=== PATIENT | male | born 1970 ===

== ENCOUNTER 2022-06-06 08:43 | Day surgery (SDC) | payer BC ==
[2022-06-06 09:46] LABS: Absolute Lymphocytes (CBC) 1.6 K/uL (0.7-4.9); Hematocrit 38.7 % (39.6-49.0); MCV 82.9 fL (80-100); RBC Red Blood Cell Count 4.67 M/uL (4.33-5.43)
[2022-06-06 10:03] LABS: Potassium 3.7 mmol/L (3.5-5.1)
[2022-06-06] MEDS ORDERED: Ringers Lactate 1,000 ML IV ONE ×2 (10:08→12:39)
[2022-06-06] MEDS ORDERED: ACETAMINOPHEN 500 MG TAB PO ONE ×2 (10:30→10:31)
[2022-06-06] MEDS ORDERED: CELECOXIB 100 MG CAPSULE PO ONE ×2 (10:30→10:31)
[2022-06-06] MEDS ORDERED: CELECOXIB 100 MG CAPSULE ONE (10:31)
[2022-06-06] MEDS ORDERED: ACETAMINOPHEN 500 MG TAB ONE (10:31)
[2022-06-06] MEDS: CEFAZOLIN SODIUM 1 GM/VIAL ONE ×2 (11:05→12:10)
[2022-06-06] MEDS ORDERED: FENTANYL CITR 100 MCG/2 ML ONE (11:41)
[2022-06-06] MEDS ORDERED: MIDAZOLAM HCL 2 MG/2 ML INJ ONE (11:41)
[2022-06-06] MEDS ORDERED: propofoL 200 MG/20 ML VIAL IV ONE (11:41)
[2022-06-06] MEDS ORDERED: LIDOCAINE 2% MPF 5 ML VIAL ONE (11:41)
[2022-06-06] MEDS ORDERED: ROCURONIUM 50 MG/5 ML VIAL IV ONE (11:41)
[2022-06-06] MEDS ORDERED: ONDANSETRON 4 MG/2 ML VIAL ONE (11:43)
[2022-06-06] MEDS ORDERED: GLYCOPYRROLATE 0.2 MG/ML SYR ONE (12:13)
[2022-06-06] MEDS ORDERED: KETOROLAC 30 MG/ML INJ ONE (12:25)
[2022-06-06] MEDS ORDERED: EPHEDRINE SULF 50 MG/ML VIAL ONE (12:32)
--- NOTE | 2022-06-06 12:36 | P.BOP ---
Preoperative diagnosis: tender posterior neck subQ mass 10x6 cm Postoperative diagnosis: same Primary procedure: Excisional biopsy of tender posterior neck subQ mass 10x6 cm Estimated blood loss: <10cc Specimen: mass Findings: see dicta Anesthesia: General Complications: None Transferred to: Recovery Room Condition: Good
[2022-06-06] MEDS ORDERED: Mastisol Adhesive Liq ONE (12:37)
--- NOTE | 2022-06-06 12:56 | RAD REPORT ---
EXAM DESCRIPTION: RAD - Chest Pa And Lat (2 Views) - 06/06/2022 10:55 am CLINICAL HISTORY: PREOP COMPARISON: None TECHNIQUE: Frontal and lateral views of the chest were obtained. FINDINGS: The lungs are clear. No mass or lymphadenopathy at either hilum. Trachea is midline. Hear t size is normal and central vasculature is within normal limits. No pleural effusion or pneumothora x seen. No acute bony finding noted. No aortic abnormality. IMPRESSION: No acute cardiopulmonary process.
[2022-06-06 13:01] VITALS: O2SAT 100
[2022-06-06 14:01] VITALS: BP 126/77; TEMP 97.6
--- NOTE | 2022-06-07 08:39 | EKG ---
Test Date: 2022-06-06 Test Time: 09:54:45 Landscaper: ALTHEA MEASUREMENT RESULTS: Intervals: Rate: 61 SC: 182 QRSD: 90 QT: 406 QTc: 408 [place]: P: 60 SC: 182 QRS: 61 T: 48 INTERPRETIVE STATEMENTS: Normal sinus rhythm Normal ECG No previous ECG available for comparison Electronically Signed On 06-07-22 08:34:54 LICENSING SPECIALIST by Isaac Merchant
--- NOTE | 2022-06-17 20:32 | DS ---
Date of Discharge: 06/06/2022 Diagnosis: Tender posterolateral neck subcutaneous mass. Procedure: Excisional biopsy of tender posterolateral neck subcutaneous mass. Disposition: Home. Activity: As tolerated. No heavy lifting. Follow Up: In my office in 1 week. Call for appointment on [phone]. Discharge Instructions: Keep area dry for 48 hours. LAWANDA/DARRYL Voice ID: [id number] Report ID: [id number]
--- NOTE | 2022-06-17 20:32 | OP ---
Date of Procedure: 06/06/2022 Surgeon: Geen Howe MD Preoperative Diagnosis: Tender posterolateral neck subcutaneous mass, 10 x 6 cm. Postoperative Diagnosis: Tender posterolateral neck subcutaneous mass, 10 x 6 cm. Procedure: Excisional biopsy of tender posterolateral subcutaneous mass, 10 x 6 cm. Estimated Blood Loss: Less than 10 cc. Findings: Subcutaneous mass all the way down to fascia and the muscle, does not penetrate the muscle . Anesthesia: General plus local. Indications: This is the case of a male who comes to us with a tender posterior neck mass. The bene fits, alternatives, and risks of excision were fully explained, which include, but are not limited to infection, bleeding, damage to adjacent structures, anesthesia complication, recurrence, [place], and guillermina n . He also understands this may not relieve the symptoms and he might need more than one surgi rajinder intervention. He understood, signed a consent. Procedure In Detail: The area of concern was marked by me and the patient in the holding room. The patient was brought to the operating room, placed in supine position, and anesthesia was done without complication. The patient was placed in lateral decubitus position with proper protection. Lateral and posterior neck area were prepped and draped in a sterile fashion. Incision was made after time- out and injected local anesthetic and with help of blunt dissection, we proceeded to dissect this lum p away from the fascia and the muscle on the neck region. We were able to enucleate the entire mass and sent it for the pathology evaluation. We obtained hemostasis, irrigated the area and then closed the area, subcutaneous tissue with 3-0 chromic and the skin was approximated. Sponge count and inst rument counts were correct. Patient tolerated the procedure well. Patient was sent to recovery in s table condition HM/MODL Voice ID: [id number] Report ID: [id number]
== END 2022-06-06 14:00 | disposition home or self-care (01) ==
LOC: OR 08:43
PROVIDERS: ATTEND Surgery
PROC: 0JB50ZZ Excision of Left Neck Subcutaneous Tissue and Fascia, Open Approach (ICD-10-PCS; principal; 2022-06-06 11:00)
DX: R22.1 Localized swelling, mass and lump, neck (principal); I10 Essential (primary) hypertension; E78.00 Pure hypercholesterolemia, unspecified
CPT/HCPCS: 93005; 85025; 80048; 36415; 88304; 71046; 11426; J2704; J2001; J2250; J3010; J7120 ×2; J2405; J0690; 88305